=== PATIENT | male | born 1990 ===

== ENCOUNTER 2023-11-28 08:11 | Outpatient (AMB) | payer MEDICAID, SELFPAY ==
--- NOTE | 2023-11-28 08:36 | A.OFFVIS_ITS ---
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 States his back pain is mainly on in between the shoulder blades. He states that his pain has been going on for 5 years. Patient has seen a chiropractor bout 2 years ago with relief, however his pain returned right after per patient. Hx of taking pain medication with mild relief. First Crusher Required: Yes Allergies No Known Allergies Allergy (Verified 11/28/23 08:44) Medication List - Last Reconciled 11/28/23 by Alla Wilcox MD No Known Home Meds HPI HPI Comments History of Present Illness Details Patient is [place]-speaking, seen with a [place] client administrator. Chronic 5 years back pain. 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 Pain is worsened over the last 6 months, depending on posture and position. Says that usually worse with hunched forward posture. Pain is usually between the shoulder blades, can radiate upwards. Does not radiate down words, does not radiate to arms or legs. Denies numbness. Denies weakness. Denies bladder bowel changes. Treatment done so far: Gone to chiropractor 2 years ago No recent physical therapy Says that he was diagnosed with disc herniation back in [place]. Lumbar and thoracic x-rays done today showed good disc spaces. At the end of the visit, he tells me that he did have an MRI recently at [facility]. No medical records were provided for this appointment unfortunately. [facility] Social History (Updated 11/28/23 @ 08:45 by Maureen Mcghee) Alcohol intake: never Patient Tobacco Use Status: Never used Tobacco Current occupational status: employed Review of Systems Const All systems reviewed & are unremarkable except as noted in HPI and below Physical Exam Vital Signs: BMI result Body Mass Index 25.2 Constitutional: Patient appears to be in no acute distress, well nourished and well developed. Patient was appropriately conversant and oriented. Good historian. MSK: No specific abnormalities found on inspection of the spine and all extremities. Some tightness over right upper trapezius. No pain with palpation over the lumbar area. Lumbar ROM was full. Bilateral hip, knee and ankle ROM WNL. No ligamentous laxity or crepitance. No increased effusion. Straight-leg raising test negative. FABERE test negative. Strength is 5/5 in all muscle groups tested. No increased tone noted. Neurological: Neurologic examination of the upper and lower extremities was nonfocal with intact sensation, muscle stretch reflexes and without focal motor deficits . Berrios?s negative bilaterally. Babinski was down going bilaterally. Clonus was negative. Gait is non-antalgic without loss of balance. Results Reviewed Results Reviewed: I independently reviewed the results of the following: As above Assessment & Plan Assessment & Plan (1) Chronic upper back pain: Code(s): M54.9 - Dorsalgia, unspecified; G89.29 - Other chronic pain (2) Myofascial pain: Code(s): M79.18 - Myalgia, other site Plan Physical exam and x-rays were reassuring. I suspect pain is myofascial affecting trapezius and rhomboids. Recent MRI done at [facility] was not provided for this appointment. We called and waiting for fax. Talked to patient about changing or correcting posture. Changing mattress for his bed. We agreed to have a follow-up appointment after have complete information/medical records including MRI. Telehealth appointment scheduled for next week. Assessment and plan discussed with patient, and patient was agreeable. All questions were answered thoroughly. Total of 45 minutes spent today including chart review, results review, history taking, physical examination, discussion of assessment and plan, and coordination of care. [ ] Alla Wilcox MD, MIQEUL Board Certified, [place] [employer] and Rehabilitation (ABPMR) Board Certified, [place] Board of Electrodiagnostic Medicine (ABEM) Orders: Orders XR thoracic spine 2V Today M54.9 - Dorsalgia, unspecified XR lumbar spine 2-3V Today M54.9 - Dorsalgia, unspecified Coding Level of Care Code New Pt Level 4 (18177) Diagnoses Chronic upper back pain M54.9; G89.29 Myofascial pain M79.18
[2023-11-28 08:43] VITALS: BMI 25.2
== END 2023-11-28 09:23 | disposition home or self-care (01) ==
PROVIDERS: Visit Provider Physical Medicine & Rehabilitation
DX: M54.9 Dorsalgia, unspecified (principal); G89.29 Other chronic pain; M79.18 Myalgia, other site
CPT/HCPCS: 99204

== ENCOUNTER 2023-11-28 11:58 | Outpatient (REF) | payer MEDICAID, SELFPAY ==
--- NOTE | ~2023-11-28 | XR_ITS ---
EXAMINATION: XR THORACIC SPINE XR LUMBAR SPINE CLINICAL INFORMATION: Dorsalgia. COMPARISON: None available. TECHNIQUE: 2 views thoracic spine, 3 views lumbosacral spine. FINDINGS: No abnormalities are seen. Disc spaces are well preserved. Vertebral body heights are maintained. No fractures or bony destructive lesions. Paraspinal soft tissues appear normal. The visualized lungs appear unremarkable. XR/XR thoracic spine 2V IMPRESSION: Unremarkable examination.
--- NOTE | ~2023-11-28 | XR_ITS ---
EXAMINATION: XR THORACIC SPINE XR LUMBAR SPINE CLINICAL INFORMATION: Dorsalgia. COMPARISON: None available. TECHNIQUE: 2 views thoracic spine, 3 views lumbosacral spine. FINDINGS: No abnormalities are seen. Disc spaces are well preserved. Vertebral body heights are maintained. No fractures or bony destructive lesions. Paraspinal soft tissues appear normal. The visualized lungs appear unremarkable. XR/XR lumbar spine 2-3V IMPRESSION: Unremarkable examination.
== END 2023-11-28 11:59 | disposition home or self-care (01) ==
LOC: HO.HOSX 11:58
PROVIDERS: Visit Provider Physical Medicine & Rehabilitation
DX: M54.9 Dorsalgia, unspecified (principal); M79.18 Myalgia, other site
CPT/HCPCS: 72070; 72100; 99202

== ENCOUNTER 2023-12-05 11:37 | Outpatient (AMB) | payer MEDICAID, SELFPAY ==
--- NOTE | 2023-12-05 11:55 | A.OFFVIS_ITS ---
Intake Intake Visit Reasons: Tele- Back pain Intake Note: Linda 33 yr old male presents for a telehealth visit with Dr. Altman to review MRI. Co Founder And Chairman Required: Yes Allergies No Known Allergies Allergy (Verified 12/05/23 11:56) HPI HPI Comments History of Present Illness Details Patient is [place]-speaking, seen with a [place] supervisor roving. Chronic 5 years back pain. 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 Pain is worsened over the last 6 months, depending on posture and position. Says that usually worse with hunched forward posture. Pain is usually between the shoulder blades, can radiate upwards. Does not radiate down words, does not radiate to arms or legs. Denies numbness. Denies weakness. Denies bladder bowel changes. Treatment done so far: Gone to chiropractor 2 years ago No recent physical therapy Says that he was diagnosed with disc herniation back in [place]. Lumbar and thoracic x-rays done today showed good disc spaces. At the end of the visit, he tells me that he did have an MRI recently at [facility]. No medical records were provided for this appointment unfortunately. Thoracic MRI obtained from 10/12/23 [facility] - thoracic cord is normal, thoracic spondylosis (tiny central disc protrusions mentioned), no stenosis, cord comopresson or neuroforamen narrowing. [facility] Social History (Updated 11/28/23 @ 08:45 by Maureen Mcghee) Alcohol intake: never Patient Tobacco Use Status: Never used Tobacco Current occupational status: employed Assessment & Plan Assessment & Plan (1) Chronic upper back pain: Code(s): M54.9 - Dorsalgia, unspecified; G89.29 - Other chronic pain (2) Myofascial pain: Code(s): M79.18 - Myalgia, other site (3) Thoracic spondylosis: Code(s): M47.814 - Spondylosis without myelopathy or radiculopathy, thoracic region Plan Physical exam and x-rays were reassuring. Thoracic MRI did not report any significant stenosis or herniation. I recommend PT but patient would prefer going back to his chiropractor. External referral placed for patient to picking belt operator at his convenience. Offered referral to pain management for consideration of injections. Patient defers for now. Assessment and plan discussed with patient, and patient was agreeable. All questions were answered thoroughly. Total of 30 minutes spent today including chart review, results review, history taking, physical examination, discussion of assessment and plan, and coordination of care. Alla Wilcox MD, MIQUEL Board Certified, [place] Board of [employer] and Rehabilitation (ABPMR) Board Certified, [place] Board [employer] Electrodiagnostic [employer] (ABEM) Orders: Referrals Chiropractic Referral G89.29 - Other chronic pain, M47.814 - Spondylosis without myelopathy or radiculopathy, thoracic region, M54.9 - Dorsalgia, unspecified, M79.18 - Myalgia, other site Telehealth Telehealth Location of provider rendering services: practice address Location of patient: address on file Patient Identification confirmed using: Name, : Yes Telehealth method: voice only Patient verbally consented to treatment: Yes Minutes spent on Phone/Video with Pt.: 10 Coding Level of Care Code Tele Est Pt Level 3 (18008) Diagnoses Chronic upper back pain M54.9; G89.29 Myofascial pain M79.18 Thoracic spondylosis M47.814
== END 2023-12-05 12:37 | disposition home or self-care (01) ==
PROVIDERS: Visit Provider Physical Medicine & Rehabilitation
DX: M47.814 Spondylosis without myelopathy or radiculopathy, thoracic region (principal); M79.18 Myalgia, other site; G89.29 Other chronic pain
CPT/HCPCS: 99213

== ENCOUNTER → 2023-12-05 11:37 | Outpatient (BNVA) | payer MEDICAID, SELFPAY | PROVIDERS: Visit Provider Physical Medicine & Rehabilitation ==